=== PATIENT | female | born 1995 | race Caucasian/White ===

== ENCOUNTER 2022-08-30 11:37 | Emergency (ER) | payer OTHER ==
[2022-08-30 11:52] VITALS: BP 133/77; PULSE 63; RESP 16; TEMP 99; BMI 29.9
[2022-08-30] MEDS ORDERED: LIDOCAINE 5% TOPICAL PATCH TP ONE (11:57)
[2022-08-30] MEDS ORDERED: LIDOCAINE 5% TOPICAL PATCH ONE (12:01)
== END 2022-08-30 12:57 | disposition home or self-care (01) ==
LOC: FER 11:37
DX: S43.401A Unspecified sprain of right shoulder joint, initial encounter (principal); W22.8XXA Striking against or struck by other objects, initial encounter
CPT/HCPCS: 73030-TC-RT-FY; 99283-25

== ENCOUNTER 2023-07-10 14:29 | Emergency (ER) | payer OTHER ==
[2023-07-10] MEDS ORDERED: IBUPROFEN 600 MG TABLET (FP) PO ONE (16:05)
[2023-07-10] MEDS: IBUPROFEN 600 MG TABLET (FP) PO ONE (16:08)
[2023-07-10 16:14] VITALS: BP 132/80; PULSE 70; RESP 15; TEMP 98.5; BMI 29.7
== END 2023-07-10 16:20 | disposition home or self-care (01) ==
LOC: FER 14:29
DX: S20.212A Contusion of left front wall of thorax, initial encounter (principal); R41.0 Disorientation, unspecified; R07.81 Pleurodynia; M54.9 Dorsalgia, unspecified; X58.XXXA Exposure to other specified factors, initial encounter; Y99.0 Civilian activity done for income or pay
CPT/HCPCS: 71046-TC-FY; 71101-TC-LT-FY; 99283-25